=== PATIENT | male | born 1945 | race Caucasian/White ===

== ENCOUNTER 2024-08-16 10:11 | Emergency (ER) | payer MEDICARE, MEDICAID, SELFPAY ==
[2024-08-16] VITALS (7 sets, daily range): BP systolic 108–144; BP diastolic 55–68; BMI 23.8
--- NOTE | 2024-08-16 10:41 | EDRN ---
Dr. Bahena in room w/pt at this time.
--- NOTE | 2024-08-16 10:44 | ED.GENMED ---
History of Present Illness
General
Chief Complaint: Fainting/Passed Out
Source: patient
Exam Limitations: none
Time Seen by Provider: 08/16/24 10:37
History of Present Illness
History of Present Illness:
See MDM
Past History
Past History
ED Past Medical History: IDDM
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
Social History
Tobacco: Non-smoker
Alcohol: None
Phy Exam
Physical Exam
Physical Exam:
See MDM
Course
Orders/Labs/Results
Orders:
Orders
08/16/24 10:26
Electrocardiogram (*1) Urgent
Reason for Study: Chest Pain
Cardiac Monitoring- Treatment ONCE
EKG- Treatment ONCE
08/16/24 10:35
PTT Urgent
Prothrombin Time Urgent
Troponin I Urgent
08/16/24 10:38
Complete Blood Count/With Diff Urgent
Comprehensive Metabolic Panel Urgent
08/16/24 10:43
CR Chest Portable - 1 View Urgent
Comment:
Reason For Exam: PICC placement
Reason Study Needs to be Portable: Unable to Transport
Abnormal Lab Results
08/16/24 08/16/24
10:35 10:38
RBC 3.61 L 10^6/uL
(4.70-6.10)
Hgb 10.0 L g/dL
(13.0-18.0)
Hct 30.6 L %
(39.0-52.0)
MCHC 32.7 L g/dL
(33.0-37.0)
Absolute Lymphs (auto) 0.9 L 10^3/uL
(1.2-3.4)
Immature Gran % 0.6 H %
(0-0.5)
Lymphocytes % 12.7 L %
(20.5-51.1)
PT 22.7 H Sec
(11.4-14.6)
APTT 41.5 H Sec
(23.4-35.0)
BUN 43 H mg/dl
(9-20)
Creatinine 1.8 H mg/dL
(0.7-1.3)
Glucose 109 H mg/dl
(70-99)
Albumin 3.4 L g/dl
(3.5-5.0)
08/16/24 10:38
08/16/24 10:38
Vital Signs
Initial and Last Documented VS:
Initial Vital Signs
Temp Pulse Resp BP Pulse Ox
97.9 F 69 16 130/62 98
08/16/24 10:16 08/16/24 10:16 08/16/24 10:16 08/16/24 10:16 08/16/24 10:16
Last Documented Vital Signs
Temp Pulse Resp BP Pulse Ox
97.9 F 56 10 108/55 97
08/16/24 10:16 08/16/24 15:00 08/16/24 15:00 08/16/24 15:00 08/16/24 15:00
MDM/Problems Addressed
Differential Diagnosis Includes:
HPI and MDM Narrative:
78-year-old male presenting from nursing facility for evaluation of syncopal event. Patient apparently stood up quickly and passed out and became unresponsive. Patient apparently orthostatic per EMS. He was given 2 L of IV fluids by EMS. Patient
states he is feeling much better. Patient complains of back pain. No obvious cellulitic changes on his back but he does have a PICC line in his right arm where he is currently receiving antibiotics for 'infection in his back'. Patient also
complained of black stool 2 days ago. He states that he was constipated for several weeks and finally had a large bowel movement 2 days ago. He explained to the nursing staff that his stool was black. They blamed it on his iron supplements. I
did a rectal exam and he does have hard stool but it is brown and guaiac positive. Patient states he is on a blood thinner but is unsure why
Given his history, will obtain basic blood work and screening EKG.
Physical exam
General: Well appearing and non-toxic
HEENT: protecting airway
Neck: appears supple
CV: No evidence of cyanosis
Resp: No accessory muscle use
Abd: Non-distended. Soft and nontender
Back: No cellulitic changes noted
Rectal: Brown stool guaiac positive
Extremities: No deformities
Neuro: alert
Psych: Normal affect
Skin: Intact
Problems Addressed including Acute and Chronic Conditions affecting care:
1. Syncope
Acuity: acute
Prognosis: stable
Details: Likely orthostatic. Will obtain EKG and troponin
2. Black stools
Acuity: acute
Prognosis: stable
Details: Stools are now brown but guaiac positive. Will obtain hemoglobin testing
Updates
On multiple reassessments after his initial fluids, patient feeling much better. Patient sleeping comfortably. He wakes up easily and states he feels better. We discussed admission versus discharge. Patient states he feels comfortable going
home. We discussed the importance of having his creatinine and hemoglobin rechecked
Differential Diagnosis (but not limited to): Upper GI bleed, orthostasis, cardiac arrhythmia
Testing considered: CT abdomen/pelvis but he has no tenderness
Drug therapy (if applicable): OTC meds, please see d/c instruction regarding Rx drugs
Amount and/or Complexity of Data Reviewed
Clinical info obtained from: Patient
External data reviewed: N/A
Labs I independently reviewed (but not limited to): Mild anemia, creatinine 1.8
Radiology: N/A
Pulse Ox: not hypoxic
EKG independently reviewed: Sinus rhythm, normal axis, no STEMI
House Officer: Sinus rhythm
Critical Care: N/A
Risk of Complication:
Social Determinants of health: Good social support
Discussed with other providers: N/A
Escalation of Care includes Admit/Obs: After being observed in the Emergency Department, pt stable for discharge.
Occasional wrong word or 'sound a like' substitutions may have occurred due to the inherent limitations of voice recognition software. Read the chart carefully and recognize, using context, where substitutions have occurred.
*Critical Care Note
Total Time (30-74mins, 75-104mins- exclusive of procedures): Not Applicable
ED Attending Note
-
Portions of this chart may have been created with voice recognition software.� Occasional wrong word or��sound alike� substitutions may have occurred due to the inherent limitations of voice recognition software.
Discharge Plan
Departure
Patient Disposition: Home (Routine Discharge)
Date of Disposition: 08/16/24
Time of Disposition: 15:35
Patient with high blood pressure during this ER visit?: No
Discharge Problem:
Orthostatic hypotension
Instructions: Dehydration in adults - ED discharge instructions
Prescriptions:
No Action
multivitamin Tablet
1 tab PO DAILY
acetaminophen [Tylenol] 325 mg Tablet
650 mg PO Q4H PRN (Reason: pain, temp>100F)
polyethylene glycol 3350 [Miralax] 17 gram Powder In Packet
17 g PO DAILY
methadone 10 mg/5 mL Solution
10 mg PO BID
cefazolin 1 gram Recon Soln
1 g IV BID
ondansetron HCl [Zofran] 4 mg Tablet
4 mg PO Q6H PRN (Reason: nausea/vomiting)
dextrose [Glucose Gel] 40 % Gel
1 ea PO PRN PRN (Reason: hypoglycemia)
clopidogrel [Plavix] 75 mg Tablet
75 mg PO DAILY
oxycodone 15 mg Tablet
15 mg PO Q4H PRN (Reason: severe pain)
magnesium hydroxide [Milk of Magnesia] 400 mg/5 mL Suspension
30 ml PO BID PRN (Reason: constipation)
tamsulosin 0.4 mg Capsule
0.4 mg PO DAILY
bisacodyl [Dulcolax (bisacodyl)] 10 mg Suppository
10 mg CA PRN PRN (Reason: constipation)
ferrous sulfate 325 mg (65 mg iron) Tablet
325 mg PO DAILY
Fleet Enema 19-7 gram/118 mL Enema
118 ml CA ONCE PRN (Reason: constipatoin)
metoprolol succinate 25 mg Tablet Extended Release 24 Hr
25 mg PO DAILY
insulin lispro [Admelog U-100 Insulin lispro] 100 unit/mL Solution
1 sliding scale dose SC DIRECTED
Rx Instructions:
151-200=3 units; 201-250=5units; 251-300=8 units; 301-350=10 units;351-400=12 units
glucagon 1 mg Recon Soln
1 mg IM PRN PRN (Reason: Glucose < or = 70)
rosuvastatin 20 mg Tablet
20 mg PO QPM
pregabalin 75 mg Capsule
75 mg PO TID
insulin glargine [Basaglar KwikPen U-100 Insulin] 100 unit/mL (3 mL) Insulin Pen
17 unit SC HS
Eliquis 5 mg Tablet
5 mg PO BID
Jardiance 10 mg Tablet
10 mg PO DAILY
Referrals:
Charanjit Amanda MD [Family Provider] -
Activity Restrictions/Additional Instructions:
Please return for any worsening symptoms.
You may return at any time if you have further concerns.
Please follow up with your doctor at the first available appointment, preferably this week. Please have your hemoglobin and kidney function rechecked.
Thank you for choosing [facility].
Interventions
Interventions:
*Risk Screen - Suicide Last Done: 08/16/24 10:16
*General Assessment Last Done: 08/16/24 10:16
*Neglect/Abuse Screening Last Done: 08/16/24 10:16
*ED- Fall Risk Assessment Last Done: 08/16/24 10:16
*ED COVID-19 Vaccine History Last Done: 08/16/24 10:16
ED- Cardiac Assessment Last Done: 08/16/24 10:52
ED- Neurological Assessment Last Done: 08/16/24 10:52
Discharge Date and Time
Print Language: GREEK
[2024-08-16 10:55] LABS: % Basophils 0.3 % (0-2); % Eosinophils 5.1 % (0-6); % Immature Granulocytes 0.6 % (0-0.5); % Lymphocytes 12.7 % (20.5-51.1); % Monocytes 8.7 % (1.7-9.3); % Neutrophils 72.6 % (42.2-75.2); Absolute Eosinophils 0.4 10^3/uL (0-0.7); Absolute Lymphocytes 0.9 10^3/uL (1.2-3.4); Absolute Monocytes 0.6 10^3/uL (0.1-0.6); Absolute Neutrophils 5.2 10^3/uL (1.4-6.5); Hematocrit 30.6 % (39.0-52.0); Mean Corp Hgb Conc. 32.7 g/dL (33.0-37.0); Mean Corpuscular Hgb 27.7 pg (27.0-31.0); Mean Corpuscular Volume 84.8 fL (80.0-94.0); Mean Platelet Volume 9.5 fL (7.4-10.4); Nucleated Red Blood Cells % 0 % (-); Platelet Count 208 10^3/uL (130-400); Red Blood Cell Count 3.61 10^6/uL (4.70-6.10); Red Cell Dist. Width 14.3 % (11.5-14.5); White Blood Cell Count 7.1 10^3/uL (4.8-10.8)
[2024-08-16 11:09] LABS: ALT (SGPT) < 10 U/L (0-50); AST (SGOT) 23 U/L (17-59); Albumin 3.4 g/dl (3.5-5.0); Alkaline Phosphatase 93 U/L (38-126); Blood Urea Nitrogen 43 mg/dl (9-20); Calcium 9.2 mg/dl (8.4-10.2); Carbon Dioxide 23 mmol/L (22-30); Chloride 106 mmol/L (98-107); Estimated Creatinine Clearance 41 ml/min; Glucose 109 mg/dl (70-99); Potassium 4.1 mmol/L (3.5-5.1); Sodium 139 mmol/L (135-145); Total Bilirubin 0.6 mg/dl (0.2-1.3); Total Protein 7.2 g/dl (6.3-8.2); eGFR 38.29
[2024-08-16 11:13] LABS: INR 1.99; PT 22.7 Sec (11.4-14.6)
--- NOTE | 2024-08-16 11:13 | EDRN ---
Portable CXR being done at stretcher side at this time.
[2024-08-16 11:14] LABS: APTT 41.5 Sec (23.4-35.0)
[2024-08-16 11:20] LABS: Troponin I < 0.012 ng/ml
== END 2024-08-16 16:46 ==
LOC: EMR 10:11
PROVIDERS: EMERGENCY PHYSICIAN Student in an Organized Health Care Education/Training Program; FAMILY PHYSICIAN Internal Medicine
DX: I95.1 Orthostatic hypotension (principal); M54.9 Dorsalgia, unspecified; R19.5 Other fecal abnormalities; E11.9 Type 2 diabetes mellitus without complications; Z79.4 Long term (current) use of insulin; Z95.828 Presence of other vascular implants and grafts; Z79.2 Long term (current) use of antibiotics
CPT/HCPCS: 99285; 71045; 80053; 84484; 85025; 85610; 85730; 93005